=== PATIENT | female | born 1955 | race Caucasian/White ===

== ENCOUNTER 2022-11-13 08:00 | Observation (INO) ==
--- NOTE | 2022-11-08 14:00 | Anesthesiology Consultation ---
Date of Service November 08, 2022 Assessment & Plan (1) Encounter for pre-operative examination: - COVID screening: Per assessment on 11/08: No known COVID-19 positive contacts or current COVID-19 related symptoms. Travel screen negative. Patient vaccinated. At surgeon discretion if preop Covid testing being done. - Check BSG AM DOS - PCP office visit (10/31/22): Chronic conditions assessed- continued on current regimen. Aware of upcoming mastectomy. - Cardiology office visit (07/28/22): "The patient recently transferred her care to [facility] and not all her records have been forwarded. She is certainly at risk for heart and vascular disease being a type 1 diabetic. She showed me blood pressure readings from her home which were better than we got in the office today. Although her EKG does not suggest a previous infarct, she does provide a history of a remote event. EKG does show left ventricular hypertrophy which would be consistent with hypertensive heart disease. With her multiple risk factors including diabetes, hypertension and systemic lupus she should be treated for hypercholesterolemia but has had an intolerance to statin medications. Currently I would recommend that we perform a resting echocardiogram to look for ischemic heart disease and for hypertensive heart disease. I would also recommend a coronary calcium score which if significantly positive then I think we should proceed to be more aggressive treatment of her cholesterol with a PCSK9 inhibitor. I plan follow-up once the above has been completed." Does not appear Echo or coronary calcium score obtained yet- Awaiting response from cardiology regarding upcoming surgery (Dr. Guzman; [facility]). History Surgery Operation Date: 11/13/22 09:50 Proposed Procedures p Bilateral Mastectomy with - Marcos Medrano MD s Left Axillary [place] Lymph Node Biopsy and Concetta Sound Technician Supervisor Localized Left Lymph Node Biopsy - Marcos Medrano MD Height/Weight Height: 5 ft 7 in Weight: 121.109 kg Allergies Allergy/AdvReac Type Severity Reaction Status Date / Time Penicillins Allergy Severe ANAPHYLAXIS Verified 11/08/22 11:52 Vuxkknl-YPO-HmN Reductase Allergy Intermediate MUSCLE LOSS Verified 11/08/22 11:52 Inhibitor [Nqzdjet-Wgm-Adw Reductase Inhibitor] Sulfa (Sulfonamide Allergy Intermediate LUPUS-LIKE Verified 11/08/22 11:52 Antibiotics) - TOLERATED FUROSEMIDE tetanus toxoid, adsorbed Allergy Intermediate Verified 11/08/22 11:52 trovafloxacin Allergy Intermediate ALLERGY TO Verified 11/08/22 11:52 JAI "SKIN GETS BURNING SENSATION" wheat Allergy Unknown RASH, HX Verified 11/08/22 11:52 CELIAC'S lisinopril AdvReac Mild COUGH Verified 11/08/22 11:52 Beer Allergy Intermediate UNKNOWN Uncoded 11/08/22 13:57 Medications Home Medications Medication Instructions Recorded Confirmed Last Taken acyclovir 1 cap PO UD PRN shingles 11/08/22 11/08/22 Unknown amlodipine 2.5 mg tablet 2.5 mg PO BID 11/08/22 11/08/22 Unknown clindamycin HCl 300 mg capsule 300 mg PO QID PRN ud 11/08/22 11/08/22 Unknown doxycycline hyclate 100 mg capsule 100 mg PO BID PRN lymphedema 11/08/22 11/08/22 Unknown furosemide 40 mg tablet 160 mg PO QAM 11/08/22 11/08/22 Unknown hydroxychloroquine 200 mg tablet 200 mg PO QAM 11/08/22 11/08/22 Unknown insulin regular human 100 unit/mL 1 sliding scale dose subcut 11/08/22 11/08/22 Unknown injection solution (Novolin R USEASDIRECTD Regular U-100 Insulin) losartan 100 mg tablet 100 mg PO HS 11/08/22 11/08/22 Unknown mupirocin 2 % topical ointment 1 applic topical UD PRN psoriasis 11/08/22 11/08/22 Unknown potassium chloride 10 mEq 10 meq PO BID 11/08/22 11/08/22 Unknown tablet,extended release triamcinolone acetonide 0.1 % 1 applic topical DAILY PRN 11/08/22 11/08/22 Unknown topical cream psoriasis Past Medical History Medical History Borderline hyperlipidemia Breast cancer Left Difficult intravenous access Diverticulosis DM type 1 (diabetes mellitus, type 1) GERD (gastroesophageal reflux disease) Hearing loss Hemorrhagic stroke 11 years ago. Rt arm pain/numbness. Hiatal hernia History of CHF (congestive heart failure) History of myocardial infarction 1994 Limb alert care status previous stroke right arm and lymphedema left arm Lupus Lymphedema Metastatic melanoma hx - stage 4, 12 years ago, S/P chemo Morbid obesity with BMI of 40.0-44.9, adult Osteoarthritis Perforated bowel hx Psoriatic arthritis Renal cyst Sjogrens syndrome Spinal stenosis Past Family History Family History Other No family history of adverse response to anesthesia Past Surgical History Surgical History H/O breast biopsy History of cholecystectomy History of hernia repair History of knee replacement BL History of lymph node excision History of total abdominal hysterectomy and bilateral salpingo-oophorectomy History of vascular access device removed Social History Smoking Status: Former smoker Do You Dip or Chew Tobacco: No Smoking End Date: quit 30 years ago Hx Alcohol Use: Yes Alcohol type: beer, wine and hard liquor alcohol intake frequency: a few times a week Hx Substance Use: Yes substance use type: marijuana Substance Use Type Other:: medical marijuana Testing Laboratory Results 10/25/22 WBC 9.91 H/H 13.5/40.6 PLATELETS 288 SODIUM 140 POTASSIUM 4.0 CHLORIDE 102 CO2 26 BUN 17 CREATININE 0.8 GLUCOSE 86 Electrocardiogram Date: 07/24/22 NSR at 60bpm. LVH with repolarization abnormality.
[~2022-11-13 08:00] MED LIST: CLINDA 900 MG **Premixed Bag IV SCH; LR 15ML/HR IV SCH
--- NOTE | 2022-11-13 09:12 | History & Physical Bridge Note ---
Date of Service November 13, 2022 History & Physical Bridge Note I have examined the patient, reviewed the History & Physical and in the interval since the performance of the History & Physical I have noted the following changes of clinical significance: no changes noted
[2022-11-13] MEDS ORDERED: fentaNYL citrate 100 MCG/2 ML VIAL ONE (09:21)
[2022-11-13] MEDS ORDERED: PROPOFOL IV EMULSION 10 MG/ML 20 ML VIAL IV ONE (09:50)
[2022-11-13] MEDS ORDERED: LIDOCAINE 2% MPF LOCAL 5 ML VIAL INFIL ONE (09:50)
[2022-11-13] MEDS ORDERED: ONDANSETRON INJ 2 MG/ML 2 ML VIAL ONE ×2 (09:50→14:03)
[2022-11-13] MEDS ORDERED: MIDAZOLAM HCL 1 MG/ML 2ML VIAL ONE (09:50)
[2022-11-13] MEDS ORDERED: ROCURONIUM BROMIDE 10 MG/ML 5 ML VIAL IV ONE ×2 (10:00→12:25)
[2022-11-13] MEDS ORDERED: LABETALOL HCL IV 5 MG/ML 20ML IV PRN (10:23)
[2022-11-13] MEDS ORDERED: ATROPINE SULFATE 0.1 MG/ML 10ML SYR IV PRN (10:23)
[2022-11-13] MEDS ORDERED: ePHEDrine sulfate 50 MG/ML AMP IV PRN (10:23)
[2022-11-13] MEDS ORDERED: PROMETHAZINE HCL 12.5 MG in SODIUM CHLORIDE 0.9% 50 ML IV PRN ×2 (10:23→17:04)
[2022-11-13] MEDS ORDERED: NALOXONE HCL 0.4 MG/1 ML VIAL/CARP IV PRN (10:23)
[2022-11-13] MEDS ORDERED: FLUMAZENIL 0.1 MG/1 ML 10 ML VIAL IV PRN (10:23)
[2022-11-13] MEDS ORDERED: fentaNYL citrate 100 MCG/2 ML VIAL IV PRN (10:23)
[2022-11-13] MEDS ORDERED: ONDANSETRON INJ 2 MG/ML 2 ML VIAL IV PRN ×2 (10:23→17:04)
[2022-11-13] MEDS ORDERED: HYDROmorphone INJ 2 MG/ML SYR/VIAL ONE (10:44)
[2022-11-13] MEDS ORDERED: METHYLENE BLUE 0.5% 10 ML VIAL ONE (10:49)
[2022-11-13] MEDS ORDERED: BUPIVACAINE LIPOSOME 1.3% 266 MG/20 ML VIAL ONE (10:50)
[2022-11-13] MEDS ORDERED: BUPIVACAINE/EPINEPHRINE 0.5% MPF 1:200,000 30 ML VIAL ONE (10:50)
[2022-11-13] MEDS ORDERED: SODIUM CHLORIDE 0.9% PF 50 ML VIAL ONE (10:50)
[2022-11-13] MEDS ORDERED: ISOSULFAN BLUE 10 MG/ML VIAL 5 ML ONE (10:50)
[2022-11-13] MEDS ORDERED: ePHEDrine sulfate 50 MG/ML AMP ONE (10:56)
[2022-11-13] MEDS ORDERED: ACETAMINOPHEN 1000 MG/100 ML IV IV ONE (11:08)
[2022-11-13] MEDS ORDERED: SUGAMMADEX SODIUM 200 MG/2 ML VIAL IV ONE (13:33)
--- NOTE | 2022-11-13 14:06 | Post Operative Brief Note ---
Immediate Post Op Note v1 Date of Surgery November 13, 2022 Pre & Post Diagnosis Operation Date: 11/13/22 09:50 Pre-Op Diagnosis: Infiltrating Ductal Carcinoma of Breast Left Post-Op Diagnosis: Infiltrating Ductal Carcinoma of Breast Left I identified the patient and participated in the time-out.: Yes Procedure Operation Date: 11/13/22 09:50 Actual Procedures p Bilateral Mastectomy with Left Axillary [place] Lymph Node Biopsy and Concetta Logging Worker Localized Left Lymph Node Biopsy(Bilateral) - Marcos Medrano MD Surgeon Marcos Medrano MD Dog Races Manager PHIL Macias assisted with tissue retraction, camera op, closure Estimated Blood Loss 20 Findings Consistent with Post-Op Diagnosis Drains Ricardo Catheter and Carson-Patten Drain (10mm Flat x2 to bilateral chest)
--- NOTE | 2022-11-13 14:12 | Operative Report ---
Post Operative Report Pre & Post Diagnosis Operation Date: 11/13/22 09:50 Pre-Op Diagnosis: Infiltrating Ductal Carcinoma of Breast Left Post-Op Diagnosis: Infiltrating Ductal Carcinoma of Breast Left I identified the patient and participated in the time-out.: Yes Procedure Operation Date: 11/13/22 09:50 Actual Procedures p Bilateral Mastectomy with Left Axillary [place] Lymph Node Biopsy and Concetta Bulb Planter Localized Left Lymph Node Biopsy(Bilateral) - Marcos Medrano MD Surgeon Marcos Medrano MD Inspection Manager PHIL Macias assisted with tissue retraction, camera op, closure Estimated Blood Loss 20 Findings Consistent with Post-Op Diagnosis Specimens Right breast mastectomy Left breast mastectomy Left sentinel lymph node Drains 10 Hebrew flat MARCO drain x2 Anesthesia Type General Complications No immediate complications Description of Procedure The patient was taken the operating room, placed supine on the operating table. A timeout was performed, perioperative antibiotics were administered, SCD boots were placed. After adequate anesthesia and analgesia was obtained, a Ricardo catheter was placed, and the patient was prepped and draped in the normal sterile fashion. Elliptical incision lines were marked on the bilateral breasts extending into the axilla. 30 cc of 1/2% Marcaine with epi/Exparel/saline was injected into each side of the breast. We began on the right. The elliptical incision was made with a 15 blade scalpel and carried down into the subcutaneous tissue. Flaps were raised, using a traction countertraction technique, the subcutaneous tissue from the underlying breast tissue. The limits of the dissection were the clavicle superiorly, the sternum medially, the rectus sheath inferiorly, and the axillary fat pad laterally. The breast was then removed from the underlying pectoralis major muscle with the Bovie electrocautery, taking care to remove the fascia with the specimen. Bleeding vessels were clamped and tied with 3-0 silk suture. The specimen was sent off the field for pathology. Attention was turned to hemostasis, which was attended to and was excellent. The wound was be irrigated and suctioned free. A 10 flat MARCO drain was placed through separate stab incision and secured in place with a 2-0 nylon suture. The subcutaneous tissue was closed with 3-0 Vicryl, and the skin was closed with a running 4-0 Monocryl subcuticular stitch. Benzoin and Steri- Strips were applied. We then turned our attention to the left breast. The elliptical incision was made with a 15 blade scalpel and carried down into the subcutaneous tissue. Flaps were raised, using a traction countertraction technique, the subcutaneous tissue from the underlying breast tissue. Once the superior flap was raised, dissection began in the axilla through the lateral extent of the mastectomy incision. A Concetta lamp shade assembler device to be placed in the enlarged lymph node that had been previously biopsied. Using the Concetta lamp shade assembler hand-held device as well as the neoprobe, we were able to dissect free the sentinel node, which happened to be the one node that had the Concetta lamp shade assembler within it. This was dissected circumferentially and sent off field for specimen. The lymphatics were clamped and tied. The background radiation was less than 5% of the sentinel node, which was 325. We then proceeded to continue with the breast dissection. The limits of the dissection were the clavicle superiorly, the sternum medially, the rectus sheath inferiorly, and the axillary fat pad laterally. The breast was then removed from the underlying pectoralis major muscle with the Bovie electrocautery, taking care to remove the fascia with the specimen. Bleeding vessels were clamped and tied with 3-0 silk suture. The specimen was sent off the field for pathology. Attention was turned to hemostasis, which was attended to and was excellent. The wound was be irrigated and suctioned free. A 10 flat MARCO drain was placed through separate stab incision and secured in place with a 2-0 nylon suture. The subcutaneous tissue was closed with 3-0 Vicryl, and the skin was closed with a running 4-0 Monocryl subcuticular stitch. Benzoin and Steri-Strips were applied. Dressings were applied bilaterally. She tolerated the procedure without complication, transferred in stable condition to the PACU. All instrument, needle, and sponge counts were correct at the end of the case. My machine operator assistant was necessary throughout the procedure for tissue retraction, possible camera operation, and closure of the wounds. I understand that section 1842(b)(7)(D) of the Social Security act generally prohibits Medicare physician fee schedule payment for the services of assistants at surgery in teaching hospitals when qualified residents are available to furnish such services. I certify that the services for which payment is claimed were medically necessary and that no qualified resident was available to perform the services. I further understand that these services are subject to postpayment review by the Medicare carrier. I attest to the content of the Intraoperative Record and any orders documented therein. Any exceptions are noted below.
[2022-11-13] MEDS ORDERED: PROMETHAZINE HCL INJ 25 MG/ML 1 ML VIAL ONE (14:31)
[2022-11-13] MEDS ORDERED: SODIUM CHLORIDE 0.9% 50 ML BAG ONE (14:31)
--- NOTE | 2022-11-13 14:43 | Mammography Report ---
SPECIMEN LEFT BREAST: 11/13/2022 CLINICAL HISTORY: 67-year-old woman with left breast carcinoma presents at time of mastectomy with le ft axillary lymph node excision. Concetta Senior Property Accountant localization of a previously biopsied left axillary lymph node was performed 11/06/2022. COMPARISON: Comparison is made to exams dated: 11/06/2022 localization - [facility] , 10/13/2022 mammogram, 10/13/2022 ultrasound, 10/12/2022 breast MRI, 09/22/2022 ultrasound, and 08/11/2022 mammogram - [facility] Flores Gallegos. FINDINGS: Specimen radiography was performed of the left axillary lymph node surgical excision tissue specimen. The specimen demonstrates a reniform dense mass containing a Saturn shaped metallic biops y marker and adjacent Concetta varnish finisher reflector. These findings are compatible exist as well preoperative localization and subsequent surgical excision. Final surgical pathology results are pending. IMPRESSION: SPECIMEN Left axillary lymph node excision specimen radiograph, as above. Maria Alejandra Cesar M.D. ay/:11/13/2022 13:34:12 [employer] Consultant: OR Technologist, [facility]
--- NOTE | 2022-11-13 16:42 | Anesthesiology Progress Note ---
Date of Service November 13, 2022 Anesthesia Post Procedure Vital Signs Vital Signs: Temp Pulse Pulse Resp BP Pulse Ox O2 Del Method 11/13/22 15:45 79 16 144/74 H 98 Oxymask 11/13/22 15:25 83 16 145/77 H 98 Oxymask 11/13/22 14:55 85 17 135/66 99 Oxymask 11/13/22 14:45 98 H 13 154/67 H 96 Oxymask 11/13/22 16:05 77 18 135/66 98 Nasal Cannula 11/13/22 15:55 36.3 C L 78 22 148/68 H 96 Oxymask 11/13/22 15:35 77 19 152/88 H 98 Oxymask 11/13/22 15:15 109 H 16 154/86 H 98 Oxymask 11/13/22 15:05 36.2 C L 79 18 143/83 H 98 Oxymask 11/13/22 14:35 104 H 12 140/78 96 Oxymask 11/13/22 14:27 36 C L 103 H 13 141/84 H 98 Oxymask 11/13/22 09:15 36.7 C 91 H 20 175/82 H 97 Room Air O2 Flow Rate 11/13/22 15:45 4 11/13/22 15:25 6 11/13/22 14:55 6 11/13/22 14:45 6 11/13/22 16:05 3 11/13/22 15:55 3 11/13/22 15:35 4 11/13/22 15:15 6 11/13/22 15:05 6 11/13/22 14:35 6 11/13/22 14:27 6 11/13/22 09:15 Pain Intensity Right Shoulder: Pain Intensity: 3 Transfer of Care Handoff Completed per policy Notes Mental Status: alert / awake / arousable and participated in evaluation Patient Amnestic to Procedure: Yes Nausea / Vomiting: adequately controlled Pain: adequately controlled Airway Patency, RR, SpO2: stable & adequate BP & HR: stable & adequate Hydration State: stable & adequate Anesthetic Complications: no major complications apparent and Pt Satisfied with anesthetic care
[2022-11-13] MEDS ORDERED: diphenhydrAMINE Capsule 25 MG CAP PO PRN (17:04)
[2022-11-13] MEDS ORDERED: LACTATED RINGER'S 1,000 ML IV SCH (17:04)
[2022-11-13] MEDS ORDERED: HYDROmorphone INJ 0.5 MG/0.5 ML SYR IV PRN (17:04)
[2022-11-13] MEDS ORDERED: GLUCOSE 10 TAB/TUBE PO PRN (18:15)
[2022-11-13] MEDS ORDERED: GLUCAGON FOR INJ 1 MG VIAL SQ PRN (18:15)
[2022-11-13] MEDS ORDERED: GLUCOSE 40% GEL 15 GM TUBE PO PRN (18:15)
[2022-11-13] MEDS ORDERED: PHARMACY GLYCEMIC MGMT CONSULT PRN (18:15)
[2022-11-13] MEDS ORDERED: DEXTROSE 50% 50 ML SYRINGE IV PRN (18:15)
[2022-11-13] MEDS ORDERED: CARBOHYDRATES FOR HYPOGLYCEMIA PO PRN (18:15)
[2022-11-13] MEDS ORDERED: LANTUS PER UNIT CHARGE SQ ONE (19:00)
--- NOTE | 2022-11-13 19:09 | Hospitalist Consultation ---
Date of Consultation November 13, 2022 Assessment & Plan (1) S/P bilateral mastectomy: (2) Breast cancer: POD#[address] Medrano Management as per general surgery Left breast tumor pathology showed hormonal negative, HER2 Tim positive (3) DM type 1 (diabetes mellitus, type 1): HgbA1c 6.5 07/2022 Lantus and NovoLog per protocol while hospitalized (4) Lymphedema: LUE from prior lymph node resection Typically takes Lasix 160 mg daily, will hold for now, resume as able (5) HTN (hypertension): BP controlled, continue amlodipine and losartan (6) Sjogrens syndrome: (7) Lupus: On Plaquenil, hold for now DVT PROPHYLAXIS SQ Lovenox 40 mg q12h as per surgery Thank you for this consultation. We will follow the patient with you during their hospital stay. You can reach a [facility] of the [facility] via the [facility] role in [place] [employer]. Supervising Physician Co-Signing Physician Notes I have seen and examined the patient and have discussed the case with the provider above. I agree with the assessment and plan as stated. 67 yo F s/p mastectomy. Denies chest pain, SOB or n/v, some expected post-operative pain. She is alert and oriented. Lungs are clear to auscultation throughout and cardiac exam reveals S1/2 heard with a regular rate and rhythm. She is euvolemic. Binder in place around chest wall. Medications and history reviewed. Agree with plan above . Thank you for this consultation. DO Ousmane History of Present Illness Reason for Consultation: Postop medical management Requesting Physician: Dr. Medrano Attending Physician: Marcos Medrano MD History of Present Illness 67-year-old female with PMH malignant melanoma s/p chemotherapy, DM type I, Raynaud's, HTN, hemorrhagic CVA, lupus, Sjogren's, reported history of myocardial infarction without cardiac catheter intervention, and other problems as below who is s/p bilateral mastectomy today by Dr. Medrano. Found to have left breast tumor with biopsy showing hormonal negative, HER2 Tim positive. Postoperatively, the patient is doing well. She reports her pain is well controlled. She reports some mild nausea. No abdominal pain or vomiting. Denies chest pain or shortness of breath. Allergies Allergy/AdvReac Type Severity Reaction Status Date / Time Penicillins Allergy Severe ANAPHYLAXIS Verified 11/13/22 09:18 Rkzbdrf-FMX-GsO Reductase Allergy Intermediate MUSCLE LOSS Verified 11/13/22 09:18 Inhibitor [Rorzerj-Mwq-Cvi Reductase Inhibitor] Sulfa (Sulfonamide Allergy Intermediate LUPUS-LIKE Verified 11/13/22 09:18 Antibiotics) - TOLERATED FUROSEMIDE tetanus toxoid, adsorbed Allergy Intermediate Verified 11/13/22 09:18 trovafloxacin Allergy Intermediate ALLERGY TO Verified 11/13/22 09:18 TROVAN "SKIN GETS BURNING SENSATION" wheat Allergy Unknown RASH, HX Verified 11/13/22 09:18 CELIAC'S lisinopril AdvReac Mild COUGH Verified 11/13/22 09:18 Beer Allergy Intermediate UNKNOWN Uncoded 11/13/22 09:18 Home Medications Medication Instructions Recorded Confirmed Type acyclovir 1 cap PO UD PRN shingles 11/08/22 11/13/22 History amlodipine 2.5 mg tablet 2.5 mg PO BID 11/08/22 11/13/22 History clindamycin HCl 300 mg capsule 300 mg PO QID PRN ud 11/08/22 11/13/22 History doxycycline hyclate 100 mg capsule 100 mg PO BID PRN lymphedema 11/08/22 11/13/22 History furosemide 40 mg tablet 160 mg PO QAM 11/08/22 11/13/22 History hydroxychloroquine 200 mg tablet 200 mg PO QAM 11/08/22 11/13/22 History insulin regular human 100 unit/mL 1 sliding scale dose subcut 11/08/22 11/13/22 History injection solution (Novolin R USEASDIRECTD Regular U-100 Insulin) losartan 100 mg tablet 100 mg PO HS 11/08/22 11/13/22 History mupirocin 2 % topical ointment 1 applic topical UD PRN psoriasis 11/08/22 11/13/22 History potassium chloride 10 mEq 10 meq PO BID 11/08/22 11/13/22 History tablet,extended release triamcinolone acetonide 0.1 % 1 applic topical DAILY PRN 11/08/22 11/13/22 History topical cream psoriasis aspirin 81 mg tablet,delayed 81 mg PO BID 11/13/22 11/13/22 History release Patient History Medical History Borderline hyperlipidemia Breast cancer Left Difficult intravenous access Diverticulosis DM type 1 (diabetes mellitus, type 1) GERD (gastroesophageal reflux disease) Hearing loss Hemorrhagic stroke 11 years ago. Rt arm pain/numbness. Hiatal hernia History of CHF (congestive heart failure) History of myocardial infarction 1994 HTN (hypertension) Limb alert care status previous stroke right arm and lymphedema left arm Lupus Lymphedema Malignant melanoma (12/06/12) Metastatic melanoma hx - stage 4, 12 years ago, S/P chemo Morbid obesity with BMI of 40.0-44.9, adult Osteoarthritis Perforated bowel hx Psoriatic arthritis Renal cyst Sjogrens syndrome Spinal stenosis Surgical History H/O breast biopsy History of cholecystectomy History of hernia repair History of knee replacement BL History of lymph node excision History of total abdominal hysterectomy and bilateral salpingo-oophorectomy History of vascular access device removed Family History Other No family history of adverse response to anesthesia Social History Smoking Status: Never smoker Smoking End Date: quit 30 years ago; Second Hand Exposure: Yes (hx); Do You Dip or Chew Tobacco: No; Tobacco Cessation Education Requested by Patient: No Hx Alcohol Use: Yes Alcohol type: beer, wine and hard liquor Hx Substance Use: Yes Substance Use Type Other:: medical marijuana Preferred Language: Estonian Communication Ability: Effective Environmental Services Director Required: No Beliefs That Will Affect Care: None Current Living Situation: Spouse Feels Safe at Home: Yes Safety Concerns: Feels Safe At This Time Assistive Devices: Cane, Glasses and Walker Review of Systems Review of Systems: ROS per HPI, all other systems reviewed and negative Physical Exam Constitutional: WD/WN, vitals as above Eyes: PERRL, conjunctivae normal, anicteric sclerae ENMT: external ear and nose normal, oropharynx normal Respiratory: normal respiratory effort, lungs clear to auscultation Cardiovascular: Rate/Rhythm: regular rate and regular rhythm Vessels: normal peripheral pulses Extremities: no edema Chest (Breasts): Additional Comments: s/p BL mastectomy, surgical dressing CDI, bilateral MARCO drains in place draining bloody drainage Gastrointestinal (Abdomen): normal bowel sounds, soft, nontender, no hepatosplenomegaly Musculoskeletal: no cyanosis or clubbing, extremities motor strength 5/5 Skin: no rashes, warm and dry Neurologic: PERRL, EOMI, accommodation nl, no face palsy, no dysarthria Psychiatric: A+Ox3, euthymic affect Results & Data Results & Data ([facility]) Vital Signs (Past 12 Hours) Vital Signs Temp Pulse Pulse Resp BP Pulse Ox O2 Del Method 11/13/22 18:44 36.6 C 72 18 122/74 96 Room Air 11/13/22 17:41 36.6 C 65 18 143/81 H 98 Nasal Cannula 11/13/22 16:35 Nasal Cannula 11/13/22 16:35 36.8 C 81 16 140/69 98 Nasal Cannula 11/13/22 17:04 36.6 C 72 18 148/82 H 99 Room Air 11/13/22 15:45 79 16 144/74 H 98 Oxymask 11/13/22 15:25 83 16 145/77 H 98 Oxymask 11/13/22 14:55 85 17 135/66 99 Oxymask 11/13/22 14:45 98 H 13 154/67 H 96 Oxymask 11/13/22 16:05 77 18 135/66 98 Nasal Cannula 11/13/22 15:55 36.3 C L 78 22 148/68 H 96 Oxymask 11/13/22 15:35 77 19 152/88 H 98 Oxymask 11/13/22 15:15 109 H 16 154/86 H 98 Oxymask 11/13/22 15:05 36.2 C L 79 18 143/83 H 98 Oxymask 11/13/22 14:35 104 H 12 140/78 96 Oxymask 11/13/22 14:27 36 C L 103 H 13 141/84 H 98 Oxymask 11/13/22 09:15 36.7 C 91 H 20 175/82 H 97 Room Air O2 Flow Rate 11/13/22 18:44 11/13/22 17:41 3 11/13/22 16:35 3 11/13/22 16:35 3 11/13/22 17:04 11/13/22 15:45 4 11/13/22 15:25 6 11/13/22 14:55 6 11/13/22 14:45 6 11/13/22 16:05 3 11/13/22 15:55 3 11/13/22 15:35 4 11/13/22 15:15 6 11/13/22 15:05 6 11/13/22 14:35 6 11/13/22 14:27 6 11/13/22 09:15
[2022-11-13] MEDS: INSULIN ASPART PER UNIT SC SCH ×3 (19:23→23:43)
[2022-11-13] MEDS: amLODIPine BESYLATE 5 MG TAB PO SCH (20:07)
[2022-11-13] MEDS ORDERED: LOSARTAN POTASSIUM 50 MG TAB PO SCH (21:00)
[2022-11-13] MEDS: oxyCODONE/ACETAMINOPHEN 5mg/325mg TAB PO PRN (21:12)
[2022-11-14] MEDS: INSULIN ASPART PER UNIT SC SCH ×3 (03:58→13:09)
[2022-11-14] MEDS: oxyCODONE/ACETAMINOPHEN 5mg/325mg TAB PO PRN ×2 (04:05→08:57)
[2022-11-14] MEDS ORDERED: ENOXAPARIN INJ 40 MG/0.4 ML SYR SQ SCH (08:00)
--- NOTE | 2022-11-14 08:39 | Surgery Progress Note ---
Date of Service November 14, 2022 Assessment & Plan (1) Breast cancer: (2) S/P bilateral mastectomy: Plan POD#1 s/p bilateral mastectomy with left sentinel lymph node biopsy doing well advance diet as tolerated encourage ambulation and Incentive spirometry PO pain meds probable discharge to home today after lunch will be discharged with drains - need drain teaching for home Admission and Anticipated Discharge Date Admission Date: November 13, 2022 Subjective POD#1 s/p bilateral mastectomy with left sentinel lymph node/MARTI director of outside sales localized biopsy doing well; some pain; no fevers/chills/nausea. tolerating clears Physical Exam Physical Exam: NAD, A&Ox3 dressing C/D/I; minimal TTP over dressing MARCO drains x2 moderate serosanguinous output Results & Data ([facility]) Vital Signs (Past 12 Hours) Vital Signs Temp Pulse Resp BP Pulse Ox O2 Del Method 11/14/22 08:11 36.9 C 80 18 170/82 H 91 Room Air 11/14/22 04:02 37 C 69 16 146/68 H 93 Room Air 11/13/22 23:30 36.8 C 69 18 134/68 95 Room Air
[2022-11-14 08:40] LABS: Hematocrit (blood only) 41.4 % (37.0-47.0); Hemoglobin 13.7 g/dl (12.0-16.0); Mean Corpuscular Hemoglobin 31.1 pg (25.0-34.0); Mean Corpuscular Hgb Conc 33.1 g/dL (32.0-36.0); Mean Corpuscular Volume 94.1 fL (80.0-100.0); Mean Platelet Volume 11.8 fL (9.4-12.4); Platelet Count 188 K/uL (130-400); RDW Coefficient of Variation 13.1 % (11.5-14.5); White Blood Count 7.85 K/ul (4.8-10.8)
[2022-11-14] MEDS: amLODIPine BESYLATE 5 MG TAB PO SCH (08:58)
[2022-11-14 09:00] LABS: BUN Creatinine Ratio 17.8 (10-20); Calcium 10.3 mg/dl (8.5-10.1); Creatinine Clr Calc Pharmacy 72.9 ml/min; Est GFR (African American) 66.7 ml/min; Est GFR (Non-African American) 57.6 ml/min; Potassium 3.7 mmol/L (3.5-5.1)
[2022-11-14] MEDS ORDERED: LANTUS PER UNIT CHARGE SQ SCH (09:00)
--- NOTE | 2022-11-14 09:43 | Pharmacy Report ---
Pharmacy Glycemic Short Note 2 - Date of Service November 14, 2022 - Glycemic Short BSG Results (Last 24 hours): 11/13/22 11/13/22 11/13/22 11:19 13:16 14:29 Glucose POC Glucose 141 H 167 H 181 H 11/13/22 11/13/22 11/13/22 17:09 19:16 20:43 Glucose POC Glucose 182 H 209 H 211 H 11/13/22 11/14/22 11/14/22 23:29 03:55 08:16 Glucose 157 H POC Glucose 160 H 140 H 11/14/22 08:22 Glucose POC Glucose 140 H OUTPATIENT ANTIDIABETIC REGIMEN: * Novolin-R insulin, ACHS plus sliding scale * 10 units with each meal * 20 units at midnight * HbA1c: pending ASSESSMENT: * Ms Cardenas is a 67yo diabetic F, POD 1 s/p B/L mastectomy with Dr Medrano yesterday. * BSGs were elevated post-op, but have improved today. * Pt was initiated on a basal/bolus insulin regimen post-op. * Will continue to follow patient and adjust regimen as indicated. PLAN FOR INPATIENT GLYCEMIC CONTROL: * Basal insulin * Lantus 10 units SQ BID * Bolus insulin * NovoLog per scale ACHS or Q6hrs while NPO * Goal Range: Low 110 mg/dL - High 140 mg/dL * Correction Factor: 30 mg/dL/unit * Nutritional / Prandial insulin per carb ratio of 1 unit per 9 grams CHO consumed
--- NOTE | 2022-11-14 09:48 | Hospitalist Progress Note ---
Date of Service November 14, 2022 Assessment & Plan (1) S/P bilateral mastectomy: (2) Breast cancer: Plan: POD#[address] Medrano Management as per general surgery Left breast tumor pathology showed hormonal negative, HER2 Tim positive incentive spirometry, will need drain teaching analgesia per general surgery likely discharge home later today (3) DM type 1 (diabetes mellitus, type 1): Plan: HgbA1c 6.5 07/2022 Lantus and NovoLog per protocol while hospitalized Pt states she uses OTC insulin due to cost, T1DM for > 50 years (4) Lymphedema: Plan: LUE from prior lymph node resection Typically takes Lasix 160 mg daily would resume this at discharge (5) HTN (hypertension): Plan: BP elevated this a.m., prior to med administration continue amlodipine and losartan will resume lasix at discharge will continue to monitor (6) Sjogrens syndrome: (7) Lupus: Plan: On Plaquenil, hold for now resume at discretion of surg DVT PROPHYLAXIS SQ Lovenox 40 mg q12h as per surgery Thank you for this consultation. We will follow the patient with you during their hospital stay. You can reach a member of the [facility] Hospitalist Team 30/[address] [facility] [address] [facility] [employer]. Pt was seen and examined in collaboration with Dr. Reyes, please see addendum A total of 35 minutes were spent with greater than 50% of that time face to face with the patient, personally reviewing all current laboratories, imaging studies, past medication reconciliation, outpatient chart review, and discussion with specialists to collaborate care for the patient with attending. Please see attending documentation for corrections and/or additions. Admission and Anticipated Discharge Date Admission Date: November 13, 2022 Supervising Physician Co-Signing Physician Notes Pt seen and examined by hi, care coordinated w/ PHIL Arias, pls refer to her note above for further detail. Patient is a 67 F w/ diabetes mellitus type 1, hypertension, status post mastectomy yesterday. Doing well overall. Seen ambulating from the bathroom. Patient's at the bedside. Patient is awake alert oriented, answering questions appropriately, breathing comfortably on room air. Lung sounds clear to auscultation. Binder in place. MARCO drains with serosanguineous fluid. Abdomen soft nontender nondistended. No lower extremity edema appreciated. Skin is warm and dry. Patient is ambulating without difficulty. Continue follow-up with oncology, and surgery as scheduled. Continue diabetes management as previous. MD Amy Subjective Patient seen and examined in room 382-2. Follow up b/l mastectomy. Overall she feels well. Has incisional pain. Denies f/c/s, sob, n/v/d. She is passing gas. No BM yet. She is elevating her arms to prevent swelling. She states she will be discharged later today. Review of Systems Review of Systems: All systems reviewed & are unremarkable except as noted in HPI & below Physical Exam Physical Exam: Gen: WD/WN, obese, F, lying in bed NAD, A&O x3 HEENT: Normocephalic, atraumatic, conjunctivae moist, sclerae anicteric, mucous membranes moist. Chest: binder in place, dry, no drainage, MARCO drain with serosang drainage Lung: Clear to Auscultation bilaterally, no wheezes/rales/rhonchi Heart: Regular rate, regular rhythm, no murmurs, rubs, or gallops Abdomen: obese, Soft, NT, ND +BS x 4 Extremities: LUE lymphedema Skin: Warm, no rash, negative turgor. Results & Data Results & Data ([facility]) Vital Signs (Past 12 Hours) Vital Signs Temp Pulse Resp BP Pulse Ox O2 Del Method 11/14/22 08:11 36.9 C 80 18 170/82 H 91 Room Air 11/14/22 04:02 37 C 69 16 146/68 H 93 Room Air 11/13/22 23:30 36.8 C 69 18 134/68 95 Room Air Laboratory Results Short CBC 11/14/22 Range/Units 08:16 WBC 7.85 (4.8-10.8) K/ul Hgb 13.7 (12.0-16.0) g/dl Hct 41.4 (37.0-47.0) % Plt Count 188 (130-400) K/uL BMP 11/14/22 08:16 Sodium 141 Potassium 3.7 Chloride 105 Carbon Dioxide 30 BUN 18 Creatinine 1.01 Glucose 157 H Calcium 10.3 H Medications Administered Current Inpatient Medications Amlodipine Besylate (Amlodipine Besylate 5 Mg Tab) 2.5 mg PO BID WEST Stop: 12/13/22 20:59 Last Admin: 11/14/22 08:58 Dose: 2.5 mg Dextrose (Dextrose 50% 50 Ml Syringe) 25 - 50 ml IV UD PRN; Protocol PRN Reason: Hypoglycemia Protocol Stop: 12/13/22 18:14 Diphenhydramine HCl (Diphenhydramine Capsule 25 Mg Cap) 25 mg PO Q4H PRN PRN Reason: hives, itching or insomnia Stop: 12/13/22 17:03 Enoxaparin Sodium (Enoxaparin Inj 40 Mg/0.4 Ml Syr) 40 mg SQ Q12H WEST Stop: 12/14/22 07:59 Glucagon (Glucagon For Inj 1 Mg Vial) 1 mg SQ UD PRN; Protocol PRN Reason: Hypoglycemia Protocol Stop: 12/13/22 18:14 Glucose (Glucose 40% Gel 15 Gm Tube) 15 - 30 gm PO UD PRN; Protocol PRN Reason: Hypoglycemia Protocol Stop: 12/13/22 18:14 Glucose (Glucose 10 Tab/Tube) 4 - 8 tab PO UD PRN; Protocol PRN Reason: Hypoglycemia Treatment Stop: 12/13/22 18:14 Hydromorphone HCl (Hydromorphone Inj 0.5 Mg/0.5 Ml Syr) 0.25 mg IV Q3H PRN PRN Reason: Pain (1,2,3,4,5) & Pre PT Stop: 11/27/22 17:03 Last Admin: 11/13/22 17:25 Dose: 0.25 mg Promethazine HCl 12.5 mg/ (Sodium Chloride) 50.5 mls @ 204 mls/hr IV Q6H PRN PRN Reason: Nausea And Vomiting Stop: 12/13/22 17:03 Lactated Ringer's (Lr) 1,000 mls @ 50 mls/hr IV .Q20H [facility] Stop: 12/13/22 17:03 Last Admin: 11/13/22 17:24 Dose: 50 mls/hr Insulin Aspart (Insulin Aspart Per Unit) 0 units SC ACHS [facility] Stop: 12/13/22 18:29 Last Admin: 11/14/22 08:57 Dose: 4 units Insulin Glargine (Lantus Per Unit Charge) 10 units SQ BID [facility] Stop: 12/14/22 08:59 Last Admin: 11/14/22 09:02 Dose: 10 units Losartan Potassium (Losartan Potassium 50 Mg Tab) 100 mg PO HS [facility]ST Stop: 12/13/22 20:59 Last Admin: 11/13/22 20:07 Dose: 100 mg Miscellaneous (Carbohydrates For Hypoglycemia ) 15 - 30 gm PO UD PRN PRN Reason: Hypoglycemia Protocol Stop: 12/13/22 18:14 Miscellaneous Information (Pharmacy Glycemic Mgmt Consult) 1 each N/A UD PRN PRN Reason: Consult Stop: 12/13/22 18:14 Ondansetron HCl (Ondansetron Inj 2 Mg/Ml 2 Ml Vial) 4 mg IV Q4H PRN PRN Reason: Nausea And Vomiting Stop: 12/13/22 17:03 Last Admin: 11/13/22 18:19 Dose: 4 mg Oxycodone/Acetaminophen (Oxycodone/Acetaminophen 5mg/325mg Tab) 1 tab PO Q4H PRN PRN Reason: MODERATE Pain (4,5,6) & Pre PT Stop: 11/27/22 17:03 Last Admin: 11/14/22 08:57 Dose: 1 tab
[2022-11-14 12:06] LABS: Estimated Average Glucose 131 mg/dl; Hemoglobin A1C 6.2 % (4.5-5.6)
--- NOTE | 2022-11-16 08:22 | Discharge Summary ---
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 Marcos Medrano. Principal Diagnosis Infiltrating ductal carcinoma of left breast Discharge Data Allergies Allergy/AdvReac Type Severity Reaction Status Date / Time Penicillins Allergy Severe ANAPHYLAXIS Verified 11/13/22 09:18 [id number] Reductase Allergy Intermediate MUSCLE LOSS Verified 11/13/22 09:18 Inhibitor [Xevdlzd-Spt-Fpn Reductase Inhibitor] Sulfa (Sulfonamide Allergy Intermediate LUPUS-LIKE Verified 11/13/22 09:18 Antibiotics) - TOLERATED FUROSEMIDE tetanus toxoid, adsorbed Allergy Intermediate Verified 11/13/22 09:18 trovafloxacin Allergy Intermediate ALLERGY TO Verified 11/13/22 09:18 TROVAN "SKIN GETS BURNING SENSATION" wheat Allergy Unknown RASH, HX Verified 11/13/22 09:18 CELIAC'S lisinopril AdvReac Mild COUGH Verified 11/13/22 09:18 Beer Allergy Intermediate UNKNOWN Uncoded 11/13/22 09:18 Consultations 11/13/22 17:04 Consult Hospitalist Routine Procedures Performed Operation Date: 11/13/22 09:50 Actual Procedures p Bilateral Mastectomy with Left Axillary [place] Lymph Node Biopsy and [employer] Localized Left Lymph Node Biopsy(Bilateral) - Marcos Medrano MD Ordered Studies 11/13/22 05:00 US - OR guided needle placemen Routine Hospital Course (1) Breast cancer: (2) S/P bilateral mastectomy: Plan Patient was taken to operating room for bilateral mastectomy with left sentinel lymph node biopsy and 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 Patient tolerated procedure well and was transferred to recovery and then to med/surg floor for postoperative care. Diet was advanced as tolerated, PO Percocet and IV Morphine prn pain, activity as tolerated, eliud drains to bulb suction. Hospitalist was consulted for postoperative comanagement due to comorbidities. Her home blood pressure medications were continued. POD # 1 avss, postop pain controlled, tolerating diet. Patient was discharged home on POD # 1 in stable condition with eliud drains. Total Time Total Time Spent Total Time Spent (In Minutes): 30 Total Time Includes: Examination of the Patient, Discharge Planning and Medication Reconciliation Discharge Plan Discharge Items Patient Disposition: Home - Self-Care Reason For Visit: Infiltrating Ductal Carcinoma of Breast Left Discharge Diagnosis: infiltrating ductal carcinoma of left breast Activity: Per Instructions section Lifting: No more than 10 pounds Sexual Activity: Wait until after follow-up appointment Exercise/Sports: Wait until after follow-up appointment Non-emergency contact: Surgeon Call non-emergency contact if: you have any medication questions, your symptoms worsen, your pain is not controlled, your pain is worsening, your pain is unusual for you, your pain is concerning for you, your temperature is above 101.5, your wound has increased redness, your wound has increased drainage and your wound pain has increased Follow-up/Referrals: Ankur Valenzuela MD [Primary Care Provider] - Diet: Regular Addtl Attending Provider Instructions: Post-Surgical ~Discharge Instructions Activity Recommendations: - lifting limitation: (10 pounds for 2 weeks), - exercise/sex/sports limit: (nonstrenuous for 2 weeks), - driving or machine use limit: (none for 1 week), - Shower/bathe limit: (may shower beginning tomorrow) Diet: - Resume previous diet SPECIAL CARE INSTRUCTIONS: - May shower in 24 hours. Let water run over area and pat dry. - Leave steri strips on for one week. - Empty and record drain output as directed. - when output from drain is less than 20mL/day for 2 days, call the office for appointment to remove drain - commence exercises for shoulder mobility (walking fingers up the wall; small circles with left arm) tomorrow - wear the provided compression bra for one week - Call the surgeon's office with any questions or concerns - - (ex. temperature higher than 101 degrees F, excessive bleeding or pain). MEDICATIONS: - Resume previous medications unless instructed otherwise by your surgeon. - Ibuprofen 600 mg every 6 hours with food - Percocet 1 every 4 hours, as needed for pain FOLLOW UP VISIT: - If not already scheduled, please call the office to schedule a two week follow-up appointment. Office number Pending Studies at Discharge: No Stand-Alone Forms: [employer], Smoking Cessation Medications and DC Order Prescriptions: New oxycodone-acetaminophen [Percocet] 5-325 mg tablet 1 tab PO Q6H PRN (Reason: pain) Qty: 16 0RF Continued furosemide 40 mg Tablet 160 mg PO QAM amlodipine 2.5 mg Tablet 2.5 mg PO BID potassium chloride 10 mEq Tablet Extended Release 10 meq PO BID Novolin R Regular U-100 Insuln 100 unit/mL Solution 1 sliding scale dose SUBCUT USEASDIRECTD Label Comments: 20 units @ midnight hydroxychloroquine 200 mg Tablet 200 mg PO QAM losartan 100 mg Tablet 100 mg PO HS doxycycline hyclate 100 mg Capsule 100 mg PO BID PRN (Reason: lymphedema ) triamcinolone acetonide 0.1 % Cream 1 applic TOPICAL DAILY PRN (Reason: psoriasis) mupirocin 2 % Ointment 1 applic TOPICAL UD PRN (Reason: psoriasis) clindamycin HCl 300 mg Capsule 300 mg PO QID PRN (Reason: ud) acyclovir 1 cap PO UD PRN (Reason: shingles) aspirin 81 mg Tablet,Delayed Release (Dr/Ec) 81 mg PO BID Discharge Orders: Discharge Order (Routine); Ordered 11/14/22 Ordered By: Marcos Tanner/Other Patient Handouts: Mastectomy: After Surgery, Carson Patten Drain Tube Dc Admission Data Admit Date/Time: 11/13/22 14:17 Attending Provider: Marcos Medrano Admit Provider: Marcos Medrano Primary Care Provider: Ankur Valenzuela Other Providers: Ailin Mckeon ; Charito Leung I. ; Rachael Stevenson ; Ellyn Nelson ; Subha Rivas ; Adia Roa ; Delia Crawley ; Zohaib Nails ; Don Leo ; Byron Arias ; Jeanette Romeo ; Jaime Regan ; Silvia Prasad ; Jamee Roman ; Cale Samuels ; Ivana Farooq ; Anaya Lind ; Sophy Coreas ; Angela Ryan I. ; Manish Reyes ; Pattie Zavaleta ; Ni Chan ; Amado Yadav ; Braxton Wayne ; Chris Kramer ; Alphonse Montana ; Pacheco Garrett ; Kath Garcia Other Interventions: Discharge Summary Assessment (RN) Last Done: 11/14/22 11:24
== END 2022-11-14 14:51 | disposition home or self-care (01) ==
LOC: EDBD → 3N 08:00 → MERGE 09:50 → ASU 16:41